=== PATIENT | female | born 1975 ===

== ENCOUNTER 2018-03-04 12:18 | Outpatient (CLI) | payer SELFPAY ==
[2018-03-04] MEDS ORDERED: BUTORPHANOL 2 MG/ML INJ (J0595) IV (16:45)
[2018-03-04 16:56] LABS: BASO % 0.7 % (0.0-1.0); EOS % 0.7 % (0.0-3.0); HEMATOCRIT 40.6 % (36.0-47.0); HEMOGLOBIN 13.8 g/dl (12.0-15.5); IMMATURE GRANULOCYTE % 0.2 % (0-3.0); LYMPH # 1.7 10^3/uL (1.5-4.5); MEAN CORPUSCULAR VOLUME 88.3 fl (80.0-96.0); MONO # 0.3 10^3/uL (0.0-0.8); MONO % 4.8 % (0.0-5.0); NEUTROPHILS # 3.8 10^3/uL (1.8-7.7); NEUTROPHILS % 64.6 % (36.0-66.0); PLATELET COUNT, AUTOMATED 195 10^3/uL (150-450); RED CELL DISTRIBUTION WIDTH 13.2 % (11.5-14.5); WHITE BLOOD COUNT 5.9 10^3/uL (4.0-10.0)
[2018-03-04] MEDS: miSOPROStol 50 MCG 1/2 TAB (S0191) PO (17:01)
[2018-03-04] MEDS: LR 1,000 ML IV (17:45)
[2018-03-04] MEDS: ACETAMINOPHEN TAB 650MG DOSE (2X325MG) PO (18:13)
[2018-03-04] MEDS: LACTATED RINGER'S 1000 ML IV (18:15)
[2018-03-04] MEDS: miSOPROStol 100 MCG TAB (S0191) PO (21:14)
[2018-03-05] MEDS ORDERED: miSOPROStol 100 MCG TAB (S0191) PO (01:00)
[2018-03-05] MEDS: miSOPROStol 100 MCG TAB (S0191) PO (01:13)
[2018-03-05] MEDS: miSOPROStol 200 MCG TAB (S0191) PO ×3 (05:08→13:07)
[2018-03-05] MEDS: LR 1,000 ML IV ×2 (05:09→10:59)
[2018-03-05] MEDS ORDERED: OXYTOCIN 30 UNITS IN 0.9% NaCl 500ML IV BAG (J2590) As Ordered (14:30)
[2018-03-05] MEDS ORDERED: OXYTOCIN DRIP 30 UNITS in APPROPRIATE DILUENT 1 EA IV (14:45)
== END 2018-03-05 17:00 | disposition home or self-care (01) ==
LOC: M LDO 12:18
DX: O36.8120 Decreased fetal movements, second trimester, not applicable or unspecified (principal); O36.4XX0 Maternal care for intrauterine death, not applicable or unspecified; O09.522 Supervision of elderly multigravida, second trimester; Z3A.17 17 weeks gestation of pregnancy
CPT/HCPCS: J0690